=== PATIENT | male | born 1935 | race Caucasian/White ===

== ENCOUNTER 2017-09-03 20:11 | Inpatient (IN) | payer MEDICARE ==
--- NOTE | ~2017-09-03 | PR ---
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 The patient was very fixated on his previous experiences in the and talked at length about some of the things that he experienced while in the war. He reports he continues to have significant sleep issues with bad dreams that wake him up frequently. He is pleasant, however, and did not talk about owning hospitals, roadways and things like that. He was much more goal directed in his thinking, although he was as mentioned previously very much fixated on the past. MENTAL STATUS: He is alert and oriented with time gaps. Mood does seem to be somewhat depressed with anxious overtones. There does not seem to be significant hypomania or felipe that was present upon admission. There was no grandiosity. There was no mood lability and tangentiality. He does have significant poor short-term memory. He does seem to be tolerating the current medication regimen well and I see no sedation, somnolence, extrapyramidal symptoms or tardive dyskinesia. PLAN: I will go ahead and increase his Fanapt from 2 mg twice a day to 2 mg in the morning and 4 mg at bedtime. My hope is that the larger dose at nighttime will go ahead and impact positively on his sleep issues while blocking the flashbacks that he is having. Even though he is taking the larger dose at night, this should also decrease his daytime anxiety. We will monitor for risk, benefits. We will engage in individual and vazquez milieu activity with the plan to return to the least restrictive environment when psychiatrically stable. ROHAN JOSEPH MD CM:PNTRANS 5 09 ROHAN JOSEPH MD 09/11/17 0914 interface
--- NOTE | ~2017-09-03 | PR ---
[place], [place] PROGRESS NOTE NAME: MILES BROWN UNIT #: [id number] ROOM: 312 DOCTOR: ROHAN JOSEPH MD BIRTHDATE: [birth year] DOS: 09/07/2017 CHIEF COMPLAINT: "I don't want this stuff, I need some sausage." SUMMARY OF THE VISIT: The patient was interviewed as he was eating his breakfast. He had most if not all of his eggs and breakfast eaten, what was left on his plate was potatoes and bananas, which he looked at and stated he did not want this. When I asked if he wanted more, he happily nodded yes. He was much more goal directed in his speech this morning and was not talking about buying hospitals, paving highways, etc. Nurses, however, report that he was doing so last afternoon and evening. MENTAL STATUS: He remains alert and oriented to self, unclear place, not to time. Mood does still seem to be labile. Affect at times is inappropriate. His speech is short and simple. At times, he does not necessarily answer the question appropriately. He does have considerable processing difficulty and short term memory remains poor. PLAN: I will go ahead and maximize out the Exelon patch to 13.3 mg daily. I will then turn to the Namenda and begin to taper it upwards to achieve maximum benefits. I will maintain the Seroquel at its lowest dose possible as to not cause too much sedation or somnolence and also not to worsen any potential extrapyramidal symptoms. He is to have a swallow evaluation later today. We will see if discontinuing the Risperdal in lieu of the Seroquel has benefited him. Continue to engage in individual and vazquez milieu activity, returning to the least restrictive environment when psychiatrically stable. ROHAN JOSEPH MD CM:PNTRANS 5 0 ROHAN JOSEPH MD 09/07/17 0950 interface
--- NOTE | ~2017-09-03 | PR ---
[place], [place] PROGRESS NOTE NAME: MILES BROWN UNIT #: [id number] ROOM: 315 DOCTOR: ROHAN JOSEPH MD BIRTHDATE: [birth year] DOS: 09/14/2017 CHIEF COMPLAINT: "Kailyn santana, what time is it?" SUMMARY OF THE VISIT: The patient was interviewed as he sat eating his breakfast. He asked me what time it was. He continues to be disjointed and fragmented in his thinking. He seems to alternate having good days and bad days. The bed days usually involve him having increased flashbacks of the [place] War. Today seems to be much more relaxed for him and he seems more goal oriented in his thinking. Of note, the hospitalist has not uncovered a lung mass that requires further workup. He did have a CAT scan of the head without contrast given the sudden mental status changes and this new finding of a lung mass. I will repeat the CAT scan with contrast this time to see if there is the possibility of any type of cranial involvement. MENTAL STATUS: He is alert and oriented to person, possibly place, not time. Mood does seem to be rather labile still. Affect at times is inappropriate. He remains grossly delusional and this does tend to shift from time to time. Memory does have gaps. PLAN: As mentioned above, I will check a CAT scan of the head with contrast this time to see if there is any possible neuro involvement. We will continue to engage in individual and vazquez milieu activity, returning to the least restrictive environment then when psychiatrically stable. ROHAN JOSEPH MD CM:PNTRANS [id number] ROHAN JOSEPH MD 09/14/17 0949 interface
--- NOTE | ~2017-09-03 | PR ---
[place], [place] PROGRESS NOTE NAME: MILES BROWN UNIT #: [id number] ROOM: 312 DOCTOR: MARY ANN PEREZ DO BIRTHDATE: [birth year] DOS: 09/08/2017 CHIEF COMPLAINT: "I don't know." SUMMARY OF VISIT: The patient was interviewed in the dining rodriguez. He when asked ____ questions, the patient responded with "I don't know." Per staff his diet was changed to a liquid thick. They state that he is swallowing better without the Remeron medication. MENTAL STATUS EXAMINATION: He remains alert and oriented to self, but not to time and unclear as to place. Mood continues to be labile with an inappropriate affect at times. His speech is short and simple and does not respond to questions appropriately. He does have again considerable processing difficulty and short term memory remains poor. PLAN: We will increase the Namenda to 10 mg in the morning with 5 mg at night to maximize potential benefits. We will continue to monitor him and continue to engage him in group and individual activities with a plan to return him to the least restrictive environment when psychiatrically stable. MARY ANN PEREZ DO ROHAN JOSEPH MD CM:PNTRANS [id number] MARY ANN PEREZ DO 09/08/17 1537 interface
--- NOTE | ~2017-09-03 | PR ---
[place], [place] PROGRESS NOTE NAME: MILES BROWN UNIT #: [id number] ROOM: 312 DOCTOR: ROHAN JOSEPH MD BIRTHDATE: [birth year] DOS: 09/05/2017 CHIEF COMPLAINT: "I am going to buy this hospital and then I am going to redo it." SUMMARY OF THE VISIT: The patient was interviewed in the dining area. He had just finished a shower. He was somewhat tired. It seems that the shower may have worn him out. He did engage readily in conversation though and continues to be very grandiose, now believing he is going to purchase the entire hospital and own it. He states he is a millionaire, no a billionaire. His mood is very labile. Nurses report similar behavior and poor sleep as well. He does seem to be tolerating the current medication regimen without any adverse events. MENTAL STATUS: He is alert and oriented with significant time gaps. Mood does seem to be rather expansive and grandiose. He is very labile. There is a great deal of delusions present. Short term memory is poor. PLAN: I will continue to increase the Exelon patch, bringing it from 4.6 to 9.5 mg a day with a target dose of 13.3 in mind. We will augment now with Namenda 5 mg a day. Given his grandiosity and mood lability with poor sleep, I will increase the Risperdal from 1 mg twice a day to 1 mg in the morning and 2 mg at night. Continue to engage in individual and vazquez milieu returning to the least restrictive environment when stable. ROAHN JOSEPH MD CM:PNTRANS 1051 [id number] ROHAN JOSEPH MD 09/05/17 1122 interface
--- NOTE | ~2017-09-03 | PR ---
[place], [place] PROGRESS NOTE NAME: MILES BROWN UNIT #: [id number] ROOM: 312 DOCTOR: ROHAN JOSEPH MD BIRTHDATE: [birth year] DOS: 09/13/2017 CHIEF COMPLAINT: "Hey, hey is this [place], is this Nam?" SUMMARY OF THE VISIT: The patient was interviewed in the Group therapy room. He was sitting in a chair pounding on it. As I approached, he began talking to me as if he was experiencing a posttraumatic stress disorder flashbacks. Initially, he thought he was in [place]. I did support and redirect him and assured him that he was safe in the hospital and we were adequately meeting his needs. This did seem to calm him briefly. He still seems to have significant mood lability and does experience a significant amount of posttraumatic stress disorder symptomatology. He is tolerating the current medication regimen well and I see no sedation, somnolence, extrapyramidal symptoms or tardive dyskinesia. MENTAL STATUS: He is alert and oriented with time gaps. Mood does seem to be still labile and anxious. He is grossly delusional. Memory has gaps. PLAN: I will increase his Fanapt to 4 mg in the morning and 6 mg at night, making certain that the nighttime dose is slightly larger, so he has less daytime sedation. Engage in individual and vazquez milieu activity with the plan to return to the least restrictive environment when psychiatrically stable. ROHAN JOSEPH MD CM:PNTRANS 1034 [id number] ROHAN JOSEPH MD 09/13/17 1045 interface
--- NOTE | ~2017-09-03 | PR ---
[place], [place] PROGRESS NOTE NAME: MILES BROWN UNIT #: [id number] ROOM: 315 DOCTOR: ROHAN JOSEPH MD BIRTHDATE: [birth year] DOS: 09/16/2017 CHIEF COMPLAINT: "Morning." SUMMARY OF THE VISIT: The patient was attempted to be interviewed as he reclined in a Karen chair, as he was sleeping in the group therapy room. Nurses report he had a horrible night and was up yelling nonstop. He eventually required p.r.n. intervention. This morning he was very somnolent as I approached. On multiple occasions I called his name and even gently shook his shoulder. I was able to get him to open his eyes and mouth, good morning, but beyond that he was not conversant. MENTAL STATUS: My mental status examination is limited due to his overall level of somnolence. There was no agitation noted during my exam. PLAN: I will go ahead and increase the Fanapt to 4 mg in the morning, which will remain the same dose, but increase the nighttime dose from 10 to 12 mg at bedtime to see if this improves sleep and suppresses the posttraumatic stress disorder symptomatology, continue to engage in individual and vazquez milieu activity, returning to the least restrictive environment when psychiatrically stable. ROHAN JOSEPH MD CM:PNTRANS 1117 1132 ROHAN JOSEPH MD 09/16/17 1131 interface
--- NOTE | ~2017-09-03 | PR ---
[place], [place] PROGRESS NOTE NAME: MILES BROWN UNIT #: [id number] ROOM: 312 DOCTOR: ROHAN JOSEPH MD BIRTHDATE: [birth year] DOS: 09/06/2017 CHIEF COMPLAINT: "I need to get out of here because I need to go to [place] to build the road." SUMMARY OF THE VISIT: The patient was interviewed as he sat in a Karen chair, doing group activities. He engaged readily in conversation. He continues to be markedly delusional and grandiose. Nurses report that he never stops talking and is even engaging himself in internal talk, often times using different voices as he speaks. They have noted that since the Risperdal was increased, he is having some swallow issues and a moist cough and have ordered a CBC with diff to followup on this. MENTAL STATUS: He is alert and oriented to person, possibly place, but not time. Mood remains labile and he is grandiose and manic. Memory has gaps. PLAN: Given the fact that he does seem to be having some drug-induced extrapyramidal symptoms, I will discontinue the Risperdal and give him Benadryl injection of 25 mg IM now to offset this. I will go ahead and start him on Seroquel, which has a very low risk of inducing extrapyramidal symptoms and start Seroquel 50 mg at bedtime. I will increase his Namenda to 5 mg b.i.d. Continue to engage in individual and vazquez milieu activity, returning then to the least restrictive environment when stable. ROHAN JOSEPH MD CM:PNTRANS 1013 1036 ROHAN JOSEPH MD 09/06/17 1035 interface
--- NOTE | ~2017-09-03 | PR ---
[place], [place] PROGRESS NOTE NAME: MILES BROWN UNIT #: [id number] ROOM: 312 DOCTOR: ROHAN JOSEPH MD BIRTHDATE: [birth year] DOS: 09/12/2017 CHIEF COMPLAINT: "I am okay, I am okay, just leave me alone." SUMMARY OF THE VISIT: The patient was interviewed as he was sitting in a Karen chair watching television and engaging in activities. He voiced no complaints. Unlike yesterday where he was hyperverbal and jumped from topic to topic, much of it dealing with the [place] War, today he was much more subdued and did not feel like talking much. Nurses report relatively decent sleep and appetite. He is tolerating the medication regimen well. MENTAL STATUS: He is alert and oriented with time gaps. Mood does seem to be trending towards euthymia. Affect is more appropriate. There is no felipe, hypomania or psychosis noted this morning. Memory for short term events is poor. PLAN: At this point, I will maintain his current psychotropic dose. I am hesitant to increase the Fanapt to far as I do not want to produce somnolence or any other side effects. We will continue to engage in individual and vazquez milieu activity, returning to the least restrictive environment when stable. ROHAN JOSEPH MD CM:PNTRANS 1030 1036 ROHAN JOSEPH MD 09/12/17 1036 interface
--- NOTE | ~2017-09-03 | PR ---
[place], [place] PROGRESS NOTE NAME: MILES BROWN UNIT #: [id number] ROOM: 315 DOCTOR: GARRICK GRESHAM MD BIRTHDATE: [birth year] DOS: 09/16/2017 SUBJECTIVE: The patient is sleeping at this time. He is supposed to go home. I have reviewed some records, he has grown mass in his lung, waiting for Dr. Marsical opinion, possible for bronchoscopy and biopsy. PHYSICAL EXAMINATION: VITAL SIGNS: Stable. He is afebrile. HEENT: Normocephalic, atraumatic NECK AND THYROID: Supple. No JVD, thyromegaly, or lymphadenopathy. HEART: Normal S1, S2. Regular rate and rhythm. LUNGS: Clear to auscultation and percussion. ABDOMEN: Soft. Nontender, nondistended. Bowel sounds present. EXTREMITIES: Normal ROM. No clubbing. No edema. ASSESSMENT: 1. Mass in the lung. 2. Major depression. PLAN: We will wait Dr. Mariscal opinion and depending on that, further intervention. GARRICK GRESHAM MD CM:PNTRANS 1309 11 GARRICK GRESHAM MD 09/16/172109 interface
--- NOTE | ~2017-09-03 | PR ---
[place], [place] PROGRESS NOTE NAME: MILES BROWN UNIT #: [id number] ROOM: 312 DOCTOR: MARY ANN PEREZ DO BIRTHDATE: [birth year] DOS: 09/09/2017 CHIEF COMPLAINT: "I am very anxious." SUMMARY OF THE VISIT: The patient was interviewed in the dining rodriguez. He had finished his breakfast. He continued to dwell on his anxiousness. Staff report that yesterday, he was very labile in his behavior, at times being anxious, at times being tearful, at times being screaming, noticed that he had vivid flashbacks, presumably to the [place] War. Stated that he had behaviors with him, so alluding asking where his men were, yelling and cursing at staff, but seemed to relive moments from his previous time during War. Per staff, he received 2 doses of Ativan due to his anxiety and agitation. He was difficult to redirect and did not fall asleep until about 2:30 in the morning. Had a difficult time sleeping. MENTAL STATUS EXAMINATION: He remains alert and oriented to self, but not to time. His mood and memory seem to be very labile. He does have inappropriate affect at times. His speech is very short and simple. He does not seem to be responding to questions appropriately, has a hard time processing information and his memory and behavior does seem to change throughout the day. PLAN: We will monitor him. Dr. Joseph to evaluate him for any further changes in his psychotropic regimen. Continue to engage him in group and individual activities with the plan to return him to the least restrictive environment when psychiatrically stable. MARY ANN PEREZ DO ROHAN JOSEPH MD CM:DORCAS MARY ANN PEREZ DO 09/09/17 1117 interface
--- NOTE | ~2017-09-03 | PR ---
[place], [place] PROGRESS NOTE NAME: MILES BROWN UNIT #: [id number] ROOM: 312 DOCTOR: ROHAN JOSEPH MD BIRTHDATE: [birth year] DOS: 09/10/2017 CHIEF COMPLAINT: "Hey, where you go, have some chocolate milk." SUMMARY OF THE VISIT: The patient was interviewed as he was sitting in a Karen chair, engaging in activities. He engaged readily in conversation. He offered me his chocolate milk that was sitting on his table and continues to have labile mood. He does still have flashbacks of the war and continues to have episodic bouts where he becomes increasingly depressed, despondent and cries out. He is tolerating the current medication regimen well. MENTAL STATUS: He is alert and oriented to person, possibly place, not time. Mood still is depressed with anxious overtones and there is mood lability noted. There are no psychotic symptoms noted. Short term memory is exceptionally poor. PLAN: I will maximize out his Namenda to 10 mg b.i.d. I will continue to titrate the Fanapt upwards to 2 mg b.i.d. This will help stabilize mood, decrease his flashbacks and decrease his daytime anxiety. Engage in individual and vazquez milieu activity, returning to the least restrictive environment when psychiatrically stable. ROHAN JOSEPH MD CM:PNTRANS [id number] 1026 ROHAN JOSEPH MD 09/10/17 1026 interface
--- NOTE | ~2017-09-03 | PR ---
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 We will review the CAT scan. Dr. Mariscal being consulted. He will probably need further workup including a biopsy before any further intervention. GARRICK GRESHAM MD CM:PNTRANS 1402 8 GARRICK GRESHAM MD 09/15/178 interface
--- NOTE | ~2017-09-03 | WRIGHTHP ---
[place], [place] PATIENT HISTORY AND PHYSICAL EXAM NAME: MILES BROWN UNIT #: [id number] ROOM: 315 DOCTOR: ROHAN JOSEPH MD BIRTHDATE: [birth year] DOS: 09/03/2017 CHIEF COMPLAINT: "I just got out of [employer], I am a millionaire, no I'm a billionaire." HISTORY OF PRESENT ILLNESS: This is an 82-year-old white male who presented to the Emergency Room at [facility] and was subsequently medically cleared and sent to the [facility] for further inpatient psychiatric evaluation and treatment. The patient apparently has a history of major depression, PTSD, as well as dementia. He has been residing at home with his and has become increasingly more agitated and aggressive. He has also been increasingly more resistive to care and has been refusing to take any of his medications both medical and psychiatric. Because of the severe mood lability and agitation and risk of harm to self and others, he was admitted to rule out further organic factors and to stabilize on medication while engaging in individual and vazquez milieu activity. PAST MEDICAL HISTORY: Remarkable for benign prostatic hypertrophy, hyperlipidemia, macular degeneration, osteoarthritis, peripheral vascular disease, rheumatoid arthritis, the history of dementia, depression, and PTSD. MENTAL STATUS: The patient is alert and oriented to self, perhaps time, not place. He is very delusional and grandiose. He believes he is a millionaire or a billionaire. He believes he just got out of [employer] the other day. He reports he plans to take his money and repave all of [address]. He jumps from topic to topic and is very tangential in his thinking. He is pressured and very much manic. He is grossly delusional, as mentioned above. Memory for short term events is poor. DIAGNOSES: Bipolar type 1, manic; posttraumatic stress disorder. PLAN: I will change his Risperdal to Risperdal M-Tab given the fact that he is episodically noncompliant. If this does not totally improve his compliance, but he tolerates it well, I may ultimately load him with Invega Sustenna or Risperdal Consta. Routine screening examination shows him to have a low vitamin D level of 26.9. I will treat him with vitamin D 50,000 International Units weekly. I will also obtain a CAT scan of the head with and without contrast to rule out organic organic factors, engage in individual and vazquez milieu activity, returning to the least restrictive environment when psychiatrically stable. [place], [place] PATIENT HISTORY AND PHYSICAL EXAM NAME: MILES BROWN UNIT #: [id number] ROOM: [facility] DOCTOR: ROHAN JOSEPH MD BIRTHDATE: [birth year] ROHAN JOSEPH MD CM:HISPHYS:PATIENT HISTORY AND PHYSICAL EXAMINATION 1020 1100 ROHAN JOSEPH MD 09/17/17 1042 interface
[2017-09-03] MEDS ORDERED: ZOCOR10 MG PO (21:25)
[2017-09-03] MEDS ORDERED: BUPROPION HCL150 MG PO (21:25)
[2017-09-03] MEDS ORDERED: NEUDEXT PO (21:26)
[2017-09-03] MEDS ORDERED: FLOMAX0.4 MG PO (21:26)
[2017-09-03] MEDS ORDERED: HYDROXYZINE PAM25 M1 PO (21:34)
[2017-09-03] MEDS ORDERED: TRAZODONE50 MG PO (21:35)
[2017-09-03] MEDS ORDERED: ATIVAN0.5 MG PO (21:35)
[2017-09-03] MEDS ORDERED: BUSPIRONE HCL10 MG PO (21:35)
[2017-09-03] MEDS ORDERED: TESSALON PERLE100 MG PO (21:36)
[2017-09-03 22:52] LABS: BILIRUBIN NEGATIVE (NEGATIVE); BLOOD NEGATIVE (NEGATIVE); CLARITY SL CLOUDY (CLEAR); COLOR YELLOW (YELLOW); GLUCOSE NEGATIVE (NEGATIVE); KETONE 1+ (NEGATIVE); LEUKO ESTERASE NEGATIVE (NEGATIVE); NITRITE NEGATIVE (NEGATIVE); UROBILINOGEN 0.2 E.U./dl (0.2-1.0)
[2017-09-03 23:09] LABS: WBC 0-2 wbc/hpf (0-5)
[2017-09-04 00:39] VITALS: BP 128/75
[2017-09-04 06:21] LABS: BASO % 0.3 % (0.0-1.0); EOS % 0.6 % (1.0-4.0); HEMATOCRIT 44.2 % (42.0-52.0); LYMPH # 1.5 10*3/uL (1.3-4.4); LYMPH % 22.7 % (27.0-41.0); MEAN CELL VOLUME 87.9 fl (80.0-94.0); MEAN CORPUSCULAR HGB 29.8 pg (27.0-31.0); MEAN CORPUSCULAR HGB CONC 33.9 g/dl (33.0-37.0); MEAN PLATELET VOLUME 9.1 fl (9.6-12.3); MONO # 0.8 10*3/uL (0.1-1.0); MONO % 12.3 % (3.0-9.0); NEUT # 4.1 10*3/uL (2.3-7.9); NEUT % 63.5 % (47.0-73.0); PLATELET COUNT AUTOMATED 193 10*3/uL (130-400); RED BLOOD COUNT 5.03 10*6/uL (4.50-5.90); RED CELL DISTRI WIDTH 12.9 % (0-14.5); WHITE BLOOD COUNT 6.4 10*3/uL (4.8-10.8)
[2017-09-04 06:42] LABS: ALBUMIN 3.8 gm/dl (3.1-4.5); ALKALINE PHOSPHATASE 64 U/L (45-117); BUN 15 mg/dl (7-24); CHLORIDE 97 mmol/L (98-107); CHOLESTEROL 155 mg/dL (<200); CREATININE 1.02 mg/dL (0.70-1.30); HDL CHOLESTEROL 72 mg/dl (40-60); LDL CHOLESTEROL 72 mg/dL (9-159); POTASSIUM 3.9 mmol/L (3.5-5.1); SGOT/AST 16 IU/L (3-35); SGPT/ALT 21 U/L (12-78); SODIUM 135 mmol/L (136-145); TOTAL PROTEIN 7.4 gm/dL (6.4-8.2); TRIGLYCERIDES 57 mg/dl (<150); VLDL CHOLESTEROL 11 mg/dL (6-40)
[2017-09-04 08:02] VITALS: BP 135/64
[2017-09-04 08:51] LABS: VITAMIN D, 25-HYDROXY 26.9 ng/mL (30-100)
[2017-09-04 20:06] VITALS: BP 123/68
[2017-09-05 08:08] VITALS: BP 128/74
[2017-09-05 20:47] VITALS: BP 143/70
[2017-09-06 07:26] VITALS: BP 130/72
[2017-09-06 10:54] LABS: HEMATOCRIT 45.3 % (42.0-52.0); HEMOGLOBIN 14.9 g/dl (14.0-18.0); MEAN CELL VOLUME 90.6 fl (80.0-94.0); MEAN CORPUSCULAR HGB 29.8 pg (27.0-31.0); MEAN CORPUSCULAR HGB CONC 32.9 g/dl (33.0-37.0); MEAN PLATELET VOLUME 9.1 fl (9.6-12.3); PLATELET COUNT AUTOMATED 185 10*3/uL (130-400); RED CELL DISTRI WIDTH 13.1 % (0-14.5); WHITE BLOOD COUNT 8.6 10*3/uL (4.8-10.8)
[2017-09-06 11:18] LABS: PLATELET SUFFICIENCY NORMAL (NORMAL); TOTAL CELLS COUNTED 100 #CELLS
[2017-09-06 19:45] VITALS: BP 128/74
[2017-09-07 08:09] VITALS: BP 132/70
[2017-09-07 20:30] VITALS: BP 114/62
[2017-09-08 07:55] VITALS: BP 125/63
[2017-09-08 20:00] VITALS: BP 122/56
[2017-09-09 07:52] VITALS: BP 124/62
[2017-09-09 20:00] VITALS: BP 146/69
[2017-09-10 07:45] VITALS: BP 110/66
[2017-09-10 19:35] VITALS: BP 122/60
[2017-09-11 07:51] VITALS: BP 124/59
[2017-09-11 20:00] VITALS: BP 136/67
[2017-09-12 08:01] VITALS: BP 123/64
[2017-09-12 20:08] VITALS: BP 133/71
[2017-09-13 07:49] VITALS: BP 132/68
[2017-09-13 20:23] VITALS: BP 117/75
[2017-09-14 07:40] VITALS: BP 130/70
[2017-09-14 20:00] VITALS: BP 156/76
[2017-09-15 07:52] VITALS: BP 136/68
[2017-09-15 20:59] VITALS: BP 120/68
[2017-09-16 07:58] VITALS: BP 121/63
[2017-09-16] MEDS ORDERED: NAMENDA10 MG PO (14:56)
[2017-09-16] MEDS ORDERED: FANAPT12 MG PO (14:56)
[2017-09-16] MEDS ORDERED: REMERON15 M2 PO (14:56)
[2017-09-16] MEDS ORDERED: EXEL13.31 T (14:57)
[2017-09-16] MEDS ORDERED: FANAPT4 MG PO (14:57)
== END 2017-09-16 15:34 | disposition short-term general hospital (02) | DRG 885 ==
LOC: 3N 20:11
PROVIDERS: Psychiatry & Neurology Psychiatry
DX: F31.10 Bipolar disorder, current episode manic without psychotic features, unspecified (principal); F03.90 Unspecified dementia, unspecified severity, without behavioral disturbance, psychotic disturbance, mood disturbance, and anxiety; I73.9 Peripheral vascular disease, unspecified; F43.10 Post-traumatic stress disorder, unspecified; R91.8 Other nonspecific abnormal finding of lung field; N40.0 Benign prostatic hyperplasia without lower urinary tract symptoms; E78.5 Hyperlipidemia, unspecified; H35.30 Unspecified macular degeneration; M19.90 Unspecified osteoarthritis, unspecified site; M06.9 Rheumatoid arthritis, unspecified; R59.9 Enlarged lymph nodes, unspecified; K29.70 Gastritis, unspecified, without bleeding; Z79.899 Other long term (current) drug therapy

== ENCOUNTER 2017-09-16 15:39 | Inpatient (IN) | payer MEDICARE ==
[~2017-09-16] VITALS: Ht 165.1 cm; Wt 65.4 kg
--- NOTE | ~2017-09-16 | CON ---
[place], [place] REPORT OF CONSULTATION NAME: MILES BROWN UNIT #: [id number] ROOM: 524 DOCTOR: HORACIO JOSHI MD BIRTHDATE: [birth year] DOS: 09/17/2017 PULMONARY CONSULTATION AND EVALUATION MANAGEMENT CONSULTATION REQUESTED BY: Hospitalist services. REASON FOR CONSULTATION: Assess the patient's for current abnormal finding on the CT scan of the chest. HISTORY OF PRESENT ILLNESS: This is an 82-year-old white male who has been admitted in this hospital initially in acute care, later on transferred to the [facility]. I was asked for the consultation for this patient at the [facility], which was not completed. The patient's CT scan of the chest was reviewed that was described with the finding of elongated mass in the left lung. The patient was planned for bronchoscopy done today for further assessment. He has been noted history of dementia, unable to give me any history. The patient has been reported symptoms of coughing. Denies any chest pain. Denies symptoms of hemoptysis or wheezing. The history was not to be completely sure the patient accurate because of history of dementia. REVIEW OF SYSTEMS: Cannot be accurately completed because the patient has a history of dementia. Remaining history actually is reviewed from medical record of the patient done by the other physician and the nurse's notes for this reason and previous hospitalization. PAST MEDICAL HISTORY: The patient was known with history of: 1. PTSD. 2. Generalized anxiety and depression. 3. Hyperlipidemia. 4. Macular degeneration. 5. History of rheumatoid arthritis. 6. Peripheral vascular disease. 7. Dementia. 8. BPH. PAST SURGICAL HISTORY: Reported as: 1. Surgery for the prostate. 2. Tonsillectomy. SOCIAL HISTORY: The patient was reported no tobacco, alcohol or illicit drug use per daughter. FAMILY HISTORY: Both parents have been , the history was unknown. MEDICATIONS: Noted as use of simvastatin, Flomax, Tessalon Perles, Fanapt, Namenda, Remeron, Exelon patch, and other p.r.n. medication administration. DRUG ALLERGIES: Noted with no known drug allergies. PHYSICAL EXAMINATION: [place], [place] REPORT OF CONSULTATION NAME: MILES BROWN UNIT #: [id number] ROOM: 524 DOCTOR: MELISA JOSHI MDULAM BIRTHDATE: [birth year] GENERAL: An 82-year-old white male currently noted cooperative with examination without any acute distress at this time with assessment this morning. His height noted 5 feet 5 inches, weight 144 pounds, BMI of 23.9. VITAL SIGNS: Normal temperature, respiratory rate 14-20, heart rate of 105-96, blood pressure 140/85-120/68. The pulse oxygen saturation on room air 96% saturation. HEENT: Head was atraumatic. Eyes nonicterus. NECK: Supple. CARDIOVASCULAR: S1, S2 is audible. LUNGS: The patient was noted without any wheeze or crackle. Breaths are noted mild to moderate decreased bilaterally. ABDOMEN: Flat, soft, nontender. EXTREMITIES: No acute edema. CENTRAL NERVOUS SYSTEM: The patient is able to move upper and lower extremities, but does not follow vocal commands, but remaining examination completion. SKIN: Visible skin, no lesions or rashes. MUSCULOSKELETAL: No obvious gross deformities ____. LABORATORY DATA: CBC this morning: WBC count normal, hemoglobin 11, platelet count was normal. The CMP of patient this morning, normal BUN and creatinine. Total protein of 6.0. Albumin of 2.8. CT scan of the head previously done on 09/14/2017 for the patient was noted moderate atrophy of the brain with chronic ischemic changes. He had a CT scan of the chest, which was done for patient on last admission on 09/13/2017 shows a clubbed finger appearance extending in the left upper and the lower lobe bronchus. The size was measured at 5.1 x 1.6 cm in the size. Some mucus impaction also described in the right lower lobe bronchus. IMPRESSION: 1. The patient currently noted behavioral issues. The patient was noted with incidental finding of current mucus with a cough, most likely related to mucus impaction very likely. Rule out any endobronchial obstructive lesion for the patient of malignancy. The patient at least clinically appeared to be less likely recurrent appearance on the CT scan of the chest. Current finding could be seen in patient with allergic bronchopulmonary aspergillosis as well. PLAN OF MANAGEMENT: At this time, the patient will continue current treatment as ordered. Bronchodilators and conservative treatment. He has already made n.p.o. past midnight for the bronchoscopy. Inspection of the major airways to be done today as a therapeutic bronchoscopy. It could be diagnostic as well. The consent has been obtained for the patient on the phone. He is agreeable for the procedure. Further change in treatment if necessary will be ordered after the bronchoscopy. [place], [place] REPORT OF CONSULTATION NAME: MILES BROWN UNIT #: [id number] ROOM: 524 DOCTOR: HORACIO JOSHI MD BIRTHDATE: [birth year] HORACIO YOUNG MD CM:CONSTR:REPORT OF CONSULTATION 1226 09/17/17 1841 interface
--- NOTE | ~2017-09-16 | PR ---
[place], [place] PROGRESS NOTE NAME: MILES BROWN UNIT #: [id number] ROOM: 524 DOCTOR: HECTOR NICHOLE MD,HORACIO BIRTHDATE: [birth year] DOS: 09/18/2017 SUBJECTIVE: The patient was noted comfortable at this time without any acute distress. He has not been noted any ongoing acute complaints, noted comfortable, awake and alert, but confused. OBJECTIVE: VITAL SIGNS: For the patient, the temperature noted 100.6 degree Fahrenheit to normal temperature, respiratory rate of 18-20, heart rate of 87-96. The blood pressure 105/48-126/71. Pulse ox saturation on room air 93% saturation at 8:00 this morning of assessment. HEENT: Examination shows head was atraumatic. Eyes nonicterus. NECK: Supple. CARDIOVASCULAR: S1, S2 is audible. LUNGS: Noted without any wheeze or crackles. ABDOMEN: Soft, nontender. Bowel sounds present. EXTREMITIES: Without any acute edema. IMPRESSION: The patient who has been currently noted with status post bronchoscopy with a significant amount of mucus impaction cleared from the endobronchial tree of the patient yesterday with his bronchoscopy noted comfortable, but noted low grade fever at this time. Possibility of pneumonia and infection to be considered. PLAN OF MANAGEMENT: No changes in the plan of therapy for the patient at this time. Continue the patient's current plan of management. Monitor culture results at this time. The patient also has been ordered CT scan of the chest, which is not completed yet to be assessed. HORACIO YOUNG MD CM:PNTRANS [id number] HORACIO NICHOLE MD 09/19/17 0832 interface
--- NOTE | ~2017-09-16 | PROC NOTE ---
[place], [place] PROCEDURE NOTE NAME: MILES BROWN UNIT #: [id number] ROOM: 524 DOCTOR: HECTOR NICHOLE MD,HORACIO BIRTHDATE: [birth year] DOS: 09/17/2017 PROCEDURE: Bronchoscopy. PREOPERATIVE DIAGNOSIS: Abnormal CT scan of the chest with suspected mucus plug in major airways. POSTOPERATIVE DIAGNOSIS: Abnormal CT scan of the chest with suspected mucus plug in major airways. There were no endobronchial obstructive lesions otherwise noted. PROCEDURE DESCRIPTION: Informed consent was obtained for the patient. The patient was brought to the OR and placed in supine position. Conscious sedation was administered by Anesthesia Department. After achieving proper sedation, airway introduced into the mouth. Bronchoscope was advanced to the airway into laryngeal area. Epiglottis and vocal cords were seen. Bronchoscope was advanced to the vocal cord, tracheal lumen noted, a small to moderate amount of thick mucous secretion suctioned out to the andrzej level. Right lower lobe bronchi were noted with a moderate amount of mucus impaction, which was removed. The remaining right endobronchial tree was noted, clear of any secretions. Bronchial washing taken from all the subsegments. The left upper lung bronchus and the lower lobe bronchi were noted. The complete occlusion, thick mucus plug noted in the left lower lobe bronchus. Partial occlusion of the lingular opening was also noted with mucus impaction. All the mucus plug was removed adequately with the help of normal saline wash. No obstructive lesions noted. All bronchi appeared to be patent afterwards. The procedure was well tolerated without difficulty. Postoperative findings were discussed with the patient's daughter on the phone. No change at this time in the treatment will be necessary. A repeat CT scan of chest was ordered, to be done in the morning for this patient to reassess the resolution of the current abnormality with the CT scan. If any abnormality persisted, he may require further additional assessment later on as an outpatient. HORACIO YOUNG MD CM:PROCNOTE:PROCEDURE NOTE [id number] [id number] HORACIO NICHOLE MD
--- NOTE | ~2017-09-16 | PR ---
[place], [place] PROGRESS NOTE NAME: MILES BROWN UNIT #: [id number] ROOM: 524 DOCTOR: HECTOR NICHOLE MD,HORACIO BIRTHDATE: [birth year] DOS: 09/19/2017 SUBJECTIVE: The patient noted comfortable at this time, noted fully awake and alert, not noted the coughing. Bronchoscopy done a couple of days ago. Not been reported symptoms of chest pain. He was noted afebrile. OBJECTIVE: VITAL SIGNS: Temperature 99.3 degree Fahrenheit, respiration 18-20, heart rate 97, blood pressure 136/53, pulse ox saturation on room air 92% saturation. HEENT: Examination shows head was atraumatic. Eyes nonicterus. CARDIOVASCULAR: S1, S2 audible. LUNGS: Noted without any wheezing or crackles. ABDOMEN: Soft, nontender. EXTREMITIES: Without any acute edema. LABORATORY DATA: Culture of the bronchial washing noted normal swetha. IMPRESSION: The patient has been noted currently comfortable. The patient responding to the treatment very well with the reduction of the mucus impaction in airways. The patient noted with a followup CT scan of the chest. Other resolution still noted incomplete. PLAN OF MANAGEMENT: The patient could be transferred to nursing facility on oral antibiotic for 10 days. Outpatient follow would be suggested to the patient about 3-4 weeks post-discharge to reassess the current abnormal CT scan of the chest. The instructions have been sent to the nursing facility as dictated by the certified medical aide. Discharging the patient today. HORACIO YOUNG MD CM:PNTRANS [id number] HORACIO NICHOLE MD 09/20/17 0158 interface
[~2017-09-16 15:39] MED LIST: ATIVAN0.5 MG PO; BUPROPION HCL150 MG PO; BUSPIRONE HCL10 MG PO; EXEL13.31 T; FANAPT12 MG PO; FANAPT4 MG PO; FLOMAX0.4 MG PO; HYDROXYZINE PAM25 M1 PO; NAMENDA10 MG PO; NEUDEXT PO; REMERON15 M2 PO; TESSALON PERLE100 MG PO; TRAZODONE50 MG PO; ZOCOR10 MG PO
[2017-09-16 16:00] VITALS: BP 148/85
[2017-09-16 20:00] VITALS: BP 120/46
[2017-09-17] VITALS (7 sets, daily range): BP systolic 96–125; BP diastolic 48–80
[2017-09-17 07:03] LABS: BASO % 0.2 % (0.0-1.0); EOS # 0.1 10*3/uL (0.0-0.4); EOS % 1.3 % (1.0-4.0); HEMATOCRIT 32.7 % (42.0-52.0); LYMPH # 1.5 10*3/uL (1.3-4.4); LYMPH % 27.4 % (27.0-41.0); MEAN CELL VOLUME 90.3 fl (80.0-94.0); MEAN CORPUSCULAR HGB 30.4 pg (27.0-31.0); MEAN CORPUSCULAR HGB CONC 33.6 g/dl (33.0-37.0); MEAN PLATELET VOLUME 9.4 fl (9.6-12.3); MONO # 0.8 10*3/uL (0.1-1.0); MONO % 13.8 % (3.0-9.0); NEUT # 3.1 10*3/uL (2.3-7.9); NEUT % 56.7 % (47.0-73.0); PLATELET COUNT AUTOMATED 164 10*3/uL (130-400); RED BLOOD COUNT 3.62 10*6/uL (4.50-5.90); RED CELL DISTRI WIDTH 12.7 % (0-14.5); WHITE BLOOD COUNT 5.4 10*3/uL (4.8-10.8)
[2017-09-17 07:15] LABS: ALBUMIN 2.8 gm/dl (3.1-4.5); BUN 23 mg/dl (7-24); CHLORIDE 107 mmol/L (98-107); CREATININE 1.06 mg/dL (0.70-1.30); PHOSPHOROUS 3.4 mg/dL (2.5-4.9); POTASSIUM 3.7 mmol/L (3.5-5.1); SGOT/AST 86 IU/L (3-35); SGPT/ALT 37 U/L (12-78); SODIUM 140 mmol/L (136-145)
[2017-09-17 07:16] LABS: ALKALINE PHOSPHATASE 52 U/L (45-117)
[2017-09-17 07:49] LABS: BILIRUBIN NEGATIVE (NEGATIVE); BLOOD 3+ (NEGATIVE); CLARITY SL CLOUDY (CLEAR); COLOR YELLOW (YELLOW); GLUCOSE NEGATIVE (NEGATIVE); KETONE NEGATIVE (NEGATIVE); LEUKO ESTERASE NEGATIVE (NEGATIVE); NITRITE NEGATIVE (NEGATIVE); SPECIFIC GRAVITY 1.015 (1.005-1.030); UROBILINOGEN 0.2 E.U./dl (0.2-1.0)
[2017-09-17 08:00] LABS: BACTERIA 1+; MUCOUS 1+; RBC 31-40 rbc/hpf (0-2)
[2017-09-18] VITALS: BP 115/41
[2017-09-18 08:00] VITALS: BP 126/71
[2017-09-18] MEDS ORDERED: PANTOPRAZOLE SO40 MG PO (11:26)
[2017-09-18 16:00] VITALS: BP 118/54
[2017-09-18 16:10] LABS: ACID FAST SPEC PROCESSING Concentration (.)
[2017-09-19] VITALS: BP 108/42
[2017-09-19 08:00] VITALS: BP 136/53
[2017-09-19] MEDS ORDERED: VIBRA-TAB100 MG PO (14:57)
[2017-09-19 16:00] VITALS: BP 128/51
== END 2017-09-19 17:35 | disposition other institution (70) | DRG 206 ==
LOC: 5E 15:39
PROVIDERS: Family Medicine; Internal Medicine Critical Care Medicine; Internal Medicine Hospice and Palliative Medicine
PROC: 0BCB8ZZ Extirpation of Matter from Left Lower Lobe Bronchus, Via Natural or Artificial Opening Endoscopic (ICD-10-PCS; principal; 2017-09-17)
PROC: 0BC88ZZ Extirpation of Matter from Left Upper Lobe Bronchus, Via Natural or Artificial Opening Endoscopic (ICD-10-PCS; principal; 2017-09-17)
PROC: 0BC18ZZ Extirpation of Matter from Trachea, Via Natural or Artificial Opening Endoscopic (ICD-10-PCS; principal; 2017-09-17)
PROC: 0BC68ZZ Extirpation of Matter from Right Lower Lobe Bronchus, Via Natural or Artificial Opening Endoscopic (ICD-10-PCS; principal; 2017-09-17)
PROC: 0BC48ZZ Extirpation of Matter from Right Upper Lobe Bronchus, Via Natural or Artificial Opening Endoscopic (ICD-10-PCS; principal; 2017-09-17)
PROC: 0BC58ZZ Extirpation of Matter from Right Middle Lobe Bronchus, Via Natural or Artificial Opening Endoscopic (ICD-10-PCS; principal; 2017-09-17)
PROC: 0BC38ZZ Extirpation of Matter from Right Main Bronchus, Via Natural or Artificial Opening Endoscopic (ICD-10-PCS; principal; 2017-09-17)
PROC: 0BC78ZZ Extirpation of Matter from Left Main Bronchus, Via Natural or Artificial Opening Endoscopic (ICD-10-PCS; principal; 2017-09-17)
PROC: 0BC98ZZ Extirpation of Matter from Lingula Bronchus, Via Natural or Artificial Opening Endoscopic (ICD-10-PCS; principal; 2017-09-17)
DX: T17.590A Other foreign object in bronchus causing asphyxiation, initial encounter (principal); F03.91 Unspecified dementia, unspecified severity, with behavioral disturbance; E83.41 Hypermagnesemia; D64.9 Anemia, unspecified; F33.9 Major depressive disorder, recurrent, unspecified; I73.9 Peripheral vascular disease, unspecified; K76.0 Fatty (change of) liver, not elsewhere classified; R91.8 Other nonspecific abnormal finding of lung field; K29.70 Gastritis, unspecified, without bleeding; K80.20 Calculus of gallbladder without cholecystitis without obstruction; F43.10 Post-traumatic stress disorder, unspecified; F41.1 Generalized anxiety disorder; X58.XXXA Exposure to other specified factors, initial encounter; M19.90 Unspecified osteoarthritis, unspecified site; N40.0 Benign prostatic hyperplasia without lower urinary tract symptoms; M06.9 Rheumatoid arthritis, unspecified; E78.5 Hyperlipidemia, unspecified; J44.9 Chronic obstructive pulmonary disease, unspecified; R74.0 Nonspecific elevation of levels of transaminase and lactic acid dehydrogenase [LDH]; H35.30 Unspecified macular degeneration; Z79.899 Other long term (current) drug therapy; Y93.89 Activity, other specified; Y92.89 Other specified places as the place of occurrence of the external cause